=== PATIENT | male | born 1980 | race Caucasian/White ===

== ENCOUNTER 2017-12-29 09:04 | Outpatient (CLI) | payer OTHER ==
--- NOTE | 2017-12-29 12:16 | MRI Preliminary Report ---
Exam: MRI CERVICAL SPINE W/O IMPRESSION: 1. Mild degenerative disk and facet changes. 2. Disk osteophyte complex at C5-C6 results in [id number] central canal stenosis. 3. Disk osteophyte complexes at C4-C5 and C6-C7 result in mild central canal stenosis. 4. Varying degrees of neural foramen stenosis, moderate to severe at C4-C5 bilaterally, C5-C6 on the left, and C6-C7 on the right. [facility] SITE ID: [id number]
--- NOTE | 2017-12-29 17:44 | MRI Report ---
EXAM: MRI CERVICAL SPINE WITHOUT CONTRAST EXAM DATE: 12/29/2017 10:05 AM. CLINICAL HISTORY: Patient reports 8 years of posterior numbness in neck and bilateral arms. COMPARISONS: None. TECHNIQUE: Multiplanar, multisequence T1-weighted and fluid-sensitive sequences of the cervical spine without contrast. Other: None. FINDINGS: Neurologic Structures: The visualized posterior fossa structures are unremarkable. Evaluation of the cervical cord limited on axial sequences due to motion and artifact. No definite cord signal abnormal ity on the sagittal sequences. Alignment: No scoliosis. Minimal reversal of the normal cervical lordosis at C4-C5. No spondylolisthe sis. Bone Marrow: No gross fractures or bone lesions. No marrow edema. Interspace Levels/Facets: C1-C2: Mild degenerative change anteriorly. C2-C3: Minimal disk osteophyte complex. Mild bilateral facet hypertrophy. No stenosis. C3-C4: Small disk osteophyte complex. Mild bilateral facet hypertrophy. Disk minimally effaces the an terior aspect of the cervical cord. Mild bilateral neural foramen stenosis. C4-C5: Small disk osteophyte complex, asymmetric to the right where there is a paracentral and forami nal component. Minimal left foraminal component. Mild bilateral facet hypertrophy. Mild central canal stenosis with mild mass effect on the anterior right aspect of the cervical cord. Moderate to severe bilateral neural foramen stenosis. C5-C6: Small disk osteophyte complex, asymmetric to the right with a paracentral and foraminal compon ent. Mild bilateral facet hypertrophy. Mild to moderate central canal stenosis. Moderate right and mo derate to severe left neural foramen stenosis. C6-C7: Small disk osteophyte complex, asymmetric to the right where there is a foraminal component. M ild bilateral facet hypertrophy. Mild central canal stenosis with subtle flattening along the anterio r aspect of the cervical cord. Moderate to severe right and mild left neural foramen stenosis. C7-T1: Minimal disk osteophyte complex. Mild bilateral facet hypertrophy. No stenosis. Musculature: No edema or fatty atrophy. Other: The paravertebral and prevertebral soft tissues are unremarkable. IMPRESSION: 1. Mild degenerative disk and facet changes. 2. Disk osteophyte complex at C5-C6 results in [id number] central canal stenosis. 3. Disk osteophyte complexes at C4-C5 and C6-C7 result in mild central canal stenosis. 4. Varying degrees of neural foramen stenosis, moderate to severe at C4-C5 bilaterally, C5-C6 on the left, and C6-C7 on the right. [facility] Referring Provider Line: [phone] SITE ID: [id number]
== END 2017-12-29 09:05 | disposition home or self-care (01) ==
LOC: DI 09:04
PROVIDERS: ATTEND Family Medicine
DX: M47.892 Other spondylosis, cervical region (principal); M50.31 Other cervical disc degeneration, high cervical region
CPT/HCPCS: 72141

== ENCOUNTER 2018-05-07 16:56 | Emergency (ER) | payer OTHER ==
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
[2018-05-07 18:56] VITALS: BP 155/87
--- NOTE | 2018-05-07 19:01 | XRAY Report ---
Procedure Date: 05/07/2018 Accession Number: [id number] / [id number] Procedure: XR - Shoulder 3 View LT CPT Code: FULL RESULT: EXAM: LEFT SHOULDER RADIOGRAPHY EXAM DATE: 05/07/2018 06:26 PM. CLINICAL HISTORY: Shoulder inj. COMPARISON: None. TECHNIQUE: 3 views. FINDINGS: Bones: Normal. No fracture or bone lesion. Joints: There is offset at the acromioclavicular joint. There is approximately 1.6 cm of displacement. The glenohumeral alignment appears satisfactory. Soft tissues: The visualized hemithorax is unremarkable. No soft tissue swelling. IMPRESSION: 1. Acromioclavicular separation. No acute fracture. Satisfactory glenohumeral alignment. [facility]
== END 2018-05-07 18:56 | disposition home or self-care (01) ==
LOC: ED 16:56
DX: S43.102A Unspecified dislocation of left acromioclavicular joint, initial encounter (principal); V19.3XXA Pedal cyclist (driver) (passenger) injured in unspecified nontraffic accident, initial encounter; Y93.55 Activity, bike riding; Y92.830 Public park as the place of occurrence of the external cause
CPT/HCPCS: 99283

== ENCOUNTER 2021-11-11 14:47 | Emergency (ER) | payer OTHER ==
[2021-11-11 14:56] VITALS: BP 155/74
--- NOTE | 2021-11-11 15:13 | ED Physician Documentation ---
PD HPI UPPER EXT INJURY - Stated complaint Stated Complaint: LT HAND THUMB LAC - Chief complaint Chief Complaint: Laceration - History obtained from History obtained from: Patient (Right-handed gentleman who is up-to-date on tetanus cut the dorsum of his left thumb while working at home with a razor blade just prior to arrival. No other injuries.) Review of Systems Constitutional: reports: Reviewed and negative Eyes: reports: Reviewed and negative Nose: reports: Reviewed and negative Cardiac: reports: Reviewed and negative PD PAST MEDICAL HISTORY - Present Medications Home Medications: Ambulatory Orders Medication Instructions Recorded Confirmed No Known Home Medications 11/11/21 11/11/21 - Allergies Allergies/Adverse Reactions: Allergies Allergy/AdvReac Type Severity Reaction Status Date / Time NSAIDS (Non-Steroidal AdvReac Severe Anaphylaxis Verified 11/11/21 14:53 Anti-Inflamma - Social History Does the pt smoke?: No Smoking Status: Never smoker Does the pt drink ETOH?: No Does the pt have substance abuse?: No - POLST Patient has POLST: No PD ED PE NORMAL - Vitals Vital signs reviewed: Yes - General General: Alert and oriented X 3, No acute distress - Extremities Extremities: Other (He has a 2 cm laceration on the dorsum of the left thumb just distal to the MCP. Distal cap refill and sensation is normal. Tendon function will be assessed after anesthetic.) - Neuro Neuro: Alert and oriented X 3, Normal speech Results - Vitals Vitals: Vital Signs - 24 hr 11/11/21 14:54 Temperature 36.5 C Heart Rate 55 L Respiratory 18 Rate Blood Pressure 155/74 H O2 Saturation 100 Oxygen O2 Source Room air Procedures - Laceration (location) L thumb Length in cm: 2 Wound type: Curved Neurovascular status: Sensory intact, Motor intact, Vascular intact Tendon involvement: Tendon intact Anesthesia: Lidocaine 1% Wound preparation: Irrigated copiously NS Skin layer closure: Nylon, Interrupted, Size #-0 - enter number (4-0) Other: Tetanus UTD Departure - Departure Disposition: 01 Home, Self Care Clinical Impression: Laceration Condition: Good Record reviewed to determine appropriate education?: Yes Instructions: ED Laceration Hand Comments: Come back for any signs of infection which would include: Redness, swelling, drainage, increased pain, or fevers. You can wash it soap and water. Keep it covered and moist with bacitracin ointment which is available over the counter; avoid neosporin. Follow-up with your physician in About 14 days for suture removal.
== END 2021-11-11 15:45 | disposition home or self-care (01) ==
LOC: ED 14:47
DX: S61.012A Laceration without foreign body of left thumb without damage to nail, initial encounter (principal); W26.0XXA Contact with knife, initial encounter; Y93.H3 Activity, building and construction; Y92.009 Unspecified place in unspecified non-institutional (private) residence as the place of occurrence of the external cause
CPT/HCPCS: 12001; 99281

== ENCOUNTER 2022-07-29 08:00 | Outpatient (CLI) | payer OTHER | END 2022-07-29 23:59 | disposition home or self-care (01) | LOC: DI 08:00 | DX: Q04.8 Other specified congenital malformations of brain (principal); Z53.21 Procedure and treatment not carried out due to patient leaving prior to being seen by health care provider ==

== ENCOUNTER 2023-06-16 08:32 | Outpatient (CLI) | payer OTHER ==
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
== END 2023-06-16 08:33 | disposition home or self-care (01) ==
LOC: DI 08:32
PROVIDERS: ATTEND General Practice
DX: S39.012A Strain of muscle, fascia and tendon of lower back, initial encounter (principal); M48.061 Spinal stenosis, lumbar region without neurogenic claudication

== ENCOUNTER 2024-03-18 10:02 | Outpatient (CLI) | payer OTHER ==
--- NOTE | 2024-03-18 10:45 | Sleep Patient Instructions ---
Sleep Center Visit Summary - Patient Visit Information Reason for Visit: Initial consult for evaluation of sleep disordered breathing and other sleep issues. - Patient Instructions Instructions Attached: Sleep Study, Sleep Study Home Monitor Additional Instructions: You will be completing a sleep study, either an in-lab polysomnography (PSG) or home sleep study (HST). You will follow-up in the sleep care office after the sleep study is completed to hear the results and talk about therapy, if needed. You will be called by our office staff to schedule this appointment, but you may contact us with any questions. - Clinic Information Contact: [facility] [address] [place] [id number] [email or web address] T: [phone]
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
[2024-03-18 10:53] VITALS: BP 158/97; O2SAT 100
== END 2024-03-18 10:03 | disposition home or self-care (01) ==
LOC: SC 10:02
PROVIDERS: ATTEND Nurse Practitioner Family
DX: R06.83 Snoring (principal); R06.81 Apnea, not elsewhere classified; R41.89 Other symptoms and signs involving cognitive functions and awareness; G47.10 Hypersomnia, unspecified
CPT/HCPCS: 99203; 99212

== ENCOUNTER 2024-04-18 19:32 | Outpatient (CLI) | payer OTHER | END 2024-04-18 19:33 | disposition home or self-care (01) | LOC: SC 19:32 | PROVIDERS: ATTEND Nurse Practitioner Family | DX: G47.33 Obstructive sleep apnea (adult) (pediatric) (principal); G47.61 Periodic limb movement disorder; E66.3 Overweight; Z68.28 Body mass index [BMI] 28.0-28.9, adult | CPT/HCPCS: 95810 ==

== ENCOUNTER 2024-05-26 08:37 | Outpatient (CLI) | payer OTHER ==
--- NOTE | 2024-05-26 09:12 | Sleep Patient Instructions ---
Sleep Center Visit Summary - Patient Visit Information Reason for Visit: Sleep study follow-up - Patient Instructions Instructions Attached: CPAP Additional Instructions: You are being started on CPAP therapy with pressure setting at 4-15 cmH2O. You will need to call the sleep care office to set up your follow up once you have your CPAP machine to check compliance and response to therapy at that time. You may call the office with any concerns about pressure feeling too low or too much for adjustment, if needed. You should contact DME supplier for any questions or concerns about mask or equipment. Please call office to schedule a follow up appointment in the sleep care office one month after obtaining new device. - Clinic Information Contact: [facility] [address] [place] [address] [email or web address] T: [phone]
--- NOTE | 2024-05-26 09:15 | SLEEP CARE CONSULTATION ---
Information from patient questionnaire entered by Tonia Mosher. I have reviewed and concur with the information entered by Tonia Mosher. This document represents the service I personally performed and the decisions made by me, Jess Norris ARNP. History of Present Illness Service Date and Time: 05/26/2024 0837 Initial [place] Sleepiness Scale score: 14 (03/16/24) Current [place] Sleepiness Scale score: 15 (05/26/24) Additional HPI information: FRANCIS CARBALLO returns for follow up and results of the recently performed polysomnography. The sleep study done on 04/18/2024 showed mild obstructive sleep apnea with an average AHI of 8.4 and laya oxygen saturation of 84%. He had moderate PLMs that did not contribute to sleep fragmentation. I explained the pathophysiology behind obstructive sleep apnea. We then spent quite a bit of time discussing different treatment options. For mild obstructive sleep apnea, surgery and oral appliance are alternatives to nasal CPAP therapy but in moderate or severe cases, nasal CPAP is the most effective and reliable treatment. Because apnea is primarily in supine position, then positional management therapy could be effective. Methods discussed such as positioning with pillows, using a T-shirt with tennis balls in the back or commercial products that have a pillow format on back to prevent supine sleep. I reviewed the impact of weight changes on sleep apnea and strongly recommended losing weight. After some discussion, the patient opted to go with the nasal CPAP therapy. Nasal autoCPAP set at 4-15 cmH20 will be ordered with rationale explained. A manual titration study will be ordered if unable to find optimal pressure with office adjustments. I explained how CPAP machine works and what to expect when using the machine. Using CPAP every night in order to get used to it was emphasized. Patient advised to put CPAP mask on before getting into bed so as not to fall asleep without CPAP. To assist acclimation to CPAP use, it could also be used for a short time during day while reading or watching TV. The patient was instructed to call the CPAP supplier to discuss any mechanical problem that may occur. If the mask given is uncomfortable or is difficult to keep on through the night even with adjustment, contact the CPAP supplier as many will replace with another mask style if notified before 30 days. If snoring or perceives is not getting enough air or too much air from the machine, notify this office. Patient counseled not drink alcohol less than 4 hours before bedtime as it can increase snoring and apnea. Patient was cautioned about risks of drowsy driving until sleepiness symptoms resolve. Patient denies drowsy driving. Sleep Study - Results Type of Sleep Study: Polysomnography (COMPLETED 04/18/24) Prior sleep studies: No Polysomnography/Home Sleep Study results: IMPRESSION: The quality of the study is good. The patient had normal sleep efficiency. The sleep architecture was abnormal for sleep fragmentation and reduced amount of time spent in slow wave sleep (N3). Respiratory monitoring showed mild obstructive sleep apnea-hypopnea (AHI = 8.4) associated with frequent arousals, oxyhemoglobin desaturation and mild hypoxia (laya oxygen saturation of 84%). The respiratory events occurred almost exclusively during supine sleep (supine AHI = 29.5; non-supine = 0.20). Snore was moderate to loud in intensity. There was moderate periodic leg movement of sleep not contributing to the sleep fragmentation. Cardiac rhythm was normal sinus rhythm without significant arrhythmia. No abnormal behavior (parasomnia) observed. Allergies and Home Medications Known drug allergies: Yes (as listed) Drug allergies reviewed: Yes Home medication list reviewed: Yes (no changes) Allergy and home medication list: Allergies NSAIDS (Non-Steroidal Anti-Inflamma Adverse Reaction (Severe, Verified 05/24/24 08:58) Anaphylaxis Review of Systems Review of systems same as previous: Yes (NO CHANGE) Physical Exam Vital signs obtained and entered by: TONIA Day MA Blood Pressure: 160/82 (RIGHT ARM) Cuff size: long Heart Rate: 68 O2 Saturation: 100 Height: 6 ft 1 in Weight: 212 lb 3.2 oz Body Mass Index: 28.0 BMI Classification: Overweight Impression and Plan 1. Obstructive Sleep Apnea-Hypopnea Syndrome, mild, with lowest oxygen saturation of 84%. Obviously this is the cause of the patients symptoms of unrefreshed sleep, and excessive daytime sleepiness. Positive pressure therapy could benefit hypertension and attention deficit. As mentioned above, the patient will be started on nasal autoCPAP therapy with pressure set at 4-15 cmH2 O. A manual titration study will be completed if unable to find optimal treatment pressure with office adjustments. Compliance guidelines also reviewed. A copy of compliance guidelines will be given for reference at check out. B ecause the apnea is more severe supine, I instructed to avoid sleeping supine using pillow positioning until able to start CPAP use. 2. Periodic limb movement, moderate, that did not fragment patients sleep. Periodic limb movement of sleep (PLMS) is characterized by episodes of repetitive limb movements that occur during sleep and usually involve the lower limbs. The etiology is unknown. Caffeine can also aggravate PLMS and should be avoided. Sleep hygiene methods can also improve sleep as well as lifestyle changes such as regular exercise. Patient was advised that no treatment is needed at this time. If symptoms increase, then further evaluation is indicated. 3. Overweight, unspecified. Currently patients BMI is 28. Obesity increases the risk of apnea, CPAP pressure requirements and overall health risks especially cardiovascular and diabetes. Thus patient is advised to lose weight. * Nasal auto CPAP therapy, pressure at 4-15 cm H2O. * Attempt to lose weight. * Avoid alcohol consumption near bedtime. * Avoid supine sleep until using CPAP. * The patient is again cautioned about driving until sleepiness completely resolves. * Return one month after CPAP obtained. I will assess response to therapy and compliance at that time. Counseling Topics: Sleeping position, Weight loss health impact Prescriptions: Auto CPAP Plan: start CPAP and compliance follow up Visit Type: In Office Time Spent with Patient (minutes): 21 Provider Statement: I spent 100% of the Face to Face Visit with the patient with greater than 50% spent counseling the patient and coordination of care.
[2024-05-26 09:20] VITALS: BP 160/82; O2SAT 100
== END 2024-05-26 08:38 | disposition home or self-care (01) ==
LOC: SC 08:37
PROVIDERS: ATTEND Nurse Practitioner Family
DX: G47.33 Obstructive sleep apnea (adult) (pediatric) (principal); G47.61 Periodic limb movement disorder; E66.3 Overweight; Z68.28 Body mass index [BMI] 28.0-28.9, adult
CPT/HCPCS: 99212; 99213

== ENCOUNTER 2024-07-22 14:00 | Outpatient (CLI) | payer OTHER ==
--- NOTE | 2024-07-22 13:39 | SLEEP CARE CONSULTATION ---
Information from patient questionnaire entered by Tonia Mosher. I have reviewed and concur with the information entered by Tonia Mosher. This document represents the service I personally performed and the decisions made by , Jess Norris ARNP. History of Present Illness Service Date and Time: 07/22/2024 1320 Previous diagnosis: Mild, Obstructive Sleep Apnea-Hypopnea Syndrome AHI: 8.4 (04/18/2024) Reason for follow up: first compliance Equipment type: CPAP (RESMED Airsense 10, S/U 06/04/24) Equipment obtained from: Other ([facility]) Mask style: Nasal (over the nose) Backup mask available: No (will keep old mask when replaced) Last cushion change: 1 week Prior sleep studies: No Type of Sleep Study: Polysomnography (COMPLETED 04/18/24) HPI additional information: FRANCIS CARBALLO was diagnosed to have mild, AHI 8.4, obstructive sleep apnea-hypopnea syndrome and returns via telephone appointment today for CPAP therapy first compliance follow-up. Sleep Study - Results Type of Sleep Study: Polysomnography (COMPLETED 04/18/24) Prior sleep studies: No CPAP Compliance Data - Data Reviewed with Patient Average duration of nightly device use: 7 HRS 23 MINS Compliance rate %: 90 (06/20/24-07/19/24; 29/30 days used) Current pressure setting (cmH2O): 4-6 (median 5.1, avg 6, max 6.3) Average residual AHI: 2.2 Central apnea: 1.4 Obstructive apnea: 0.5 Hypopnea: 0.2 Average large leak: 0.8 L/min Subjective Patient concerns: reports: condensation in mask/hose (little bit in pillow), other (FEELING STUFFY). denies: aerophagia, mask discomfort, air blowing in eyes, mask leak noise, nasal congestion, dry mouth, nose, throat, epistaxis Observed to snore while using device: No Current pressure setting perceived as: comfortable On therapy, patient: reports: sleeping better (sleeping for longer periods), other (blood pressure down). denies: drowsiness while driving Initial [place] Sleepiness Scale score: 14 (03/16/24) Current [place] Sleepiness Scale score: 14 (07/22/24) Allergies and Home Medications Known drug allergies: Yes (as listed) Drug allergies reviewed: Yes Home medication list reviewed: Yes (no changes) Allergy and home medication list: Allergies NSAIDS (Non-Steroidal Anti-Inflamma Adverse Reaction (Severe, Verified 07/22/24 13:12) Anaphylaxis Review of Systems Review of systems same as previous: Yes (NO CHANGE) Physical Exam Vital signs obtained and entered by: Tonia Day MA Height: 6 ft 1 in (PER PT) Weight: 200 lb (PER PT) Body Mass Index: 26.4 BMI Classification: Overweight Impression and Plan 1. Obstructive Sleep Apnea-Hypopnea Syndrome, mild, with good treatment compliance and good apnea control. On CPAP therapy, the patient has better sleep quality and has noticed that his blood pressure has reduced. He says he is sleeping for longer periods of time and he is getting used to using the CPAP. His is happier because he is not snoring when using his CPAP. He has been having a little bit of stuffiness in his nose which makes it difficult when using the mask because the pressure does not feel enough at that time. I discussed with him using a saline nasal rinse to help reduce nasal stuffiness and allow ease of breathing. He has got a little condensation in the mask and I explained how the heated hose and humidity work for adjusting for condensation and moisture. He voiced understanding. Patient's apnea severity and rationale for treatment to reduce apnea, improve sleep quality and reduce cardiovascular and cerebrovascular events was reviewed. I also reviewed the benefit of consistent device use of CPAP for hypertension, attention deficit. 2. Overweight, unspecified. Currently patients BMI is 26.4. Obesity increases the risk of apnea, CPAP pressure requirements and overall health risks especially cardiovascular and diabetes. Thus patient is advised to lose weight. * Continue auto CPAP pressure at 4-6 cmH2O * Notify me if snoring with mask or feeling that the pressure is too much or too little * Attempt to lose weight * Call this office if any problems using CPAP * Return for follow up in 3 months, or sooner if concerns arise Counseling Topics: Weight loss health impact Follow up with Sleep Care in: 3 months Visit Type: Telehealth Phone Video Type: [place] Patient Location: work Location of Provider: Office Patient agrees and consents to this telehealth visit type: Yes Patient agrees to have their insurance billed: Yes Time Spent with Patient (minutes): 14 Provider Statement: I spent 100% of the Telehealth Phone Call with the patient with greater than 50% spent counseling the patient and coordination of care.
== END 2024-07-22 14:01 | disposition home or self-care (01) ==
LOC: SC 14:00
PROVIDERS: ATTEND Nurse Practitioner Family
DX: G47.33 Obstructive sleep apnea (adult) (pediatric) (principal); E66.3 Overweight; Z68.26 Body mass index [BMI] 26.0-26.9, adult
CPT/HCPCS: 99442